=== PATIENT | female | born 1965 | race Caucasian/White ===

== ENCOUNTER 2016-11-23 17:18 | Emergency (ER) | payer OTHER ==
--- NOTE | ~2016-11-23 | CT52 ---
[facility] A Service of [facility] RADIOLOGY TEXT RESULTS PATIENT: KHARI GUZMAN LOCATION: SED : 65 UNIT #: [id number] AGE: [address]: Breann Houser SEX: F ORDER DR: [id number] [address] [address] [id number] E MR#: [id number] #: [id number] NAME: KHARI GUZMAN : 1965 SEX: F STUDY DATE/TIME: 11/23/2016 17:44 UNIT: SED ROOM: STUDY DESCRIPTION: CT Cervical Spine Wo Cont Attending Physician: Breann Houser Pa-C Ordering Physician: Staff Doctor Not On MEDICAL IMAGING REPORT This report is preliminary unless electronic signature is present. EXAM CT C-spine without contrast dated 11/23/2016 COMPARISON None. HISTORY Left-sided neck pain which radiates into the left shoulder since 11/19/2016. Hand and fingers demonstrate tingling. TECHNIQUE This CT exam was performed with one or more of the following radiation dose reduction techniques: automatic control, adjustment of mA and/or kV according to patient size, and iterative reconstruction. FINDINGS CT of the C-spine was obtained without contrast in the axial plane followed by sagittal and coronal reformats. No acute fracture or subluxation is seen. Degenerative endplate changes are noted with loss of disc height at C4-5 and C5-6. Pre and paravertebral soft tissues do not demonstrate any significant abnormality. Emphysematous blebs are noted in the right lung. C2-3 to C4-5: No significant canal stenosis or neural foraminal narrowing. Small left uncinate spur is seen in the C4-5 level without any severe nerve impingement. C5-6: Disc osteophyte complex with bilateral uncinate spurs, moderate to severe left and mild to moderate right neural foraminal narrowing with borderline-sized canal. C6-7, C7-T1: Unremarkable. [facility] A Service [facility] RADIOLOGY TEXT RESULTS PATIENT: KHARI GUZMAN LOCATION: SED : 65 UNIT #: [id number] AGE: [address]: Breann Houser SEX: F ORDER DR: IMPRESSION 1. Degenerative changes are noted at particularly C5-6 and to a lesser degree at C4-5. Bilateral C5-6 neural foraminal narrowing is seen, worse on the left with mild canal stenosis. 2. No acute fracture. Dictated by... Janessa Andrade M.D. THIS IS AN ELECTRONICALLY VERIFIED REPORT Janessa Andrade M.D. at 11/26/2016 1:43 PM CPR/rnr TD: 11/24/2016 00:39 JOB #: [id number] MEDICAL IMAGING REPORT Page 1 of 1
[~2016-11-23 17:18] MED LIST: COLACE PO; HYDROCODON-ACE1 EA11 PO; IBUPROFEN800 MG PO; PHENTERMINE PO
== END 2016-11-23 18:50 | disposition home or self-care (01) ==
LOC: SED 17:18
DX: M48.02 Spinal stenosis, cervical region (principal); F17.210 Nicotine dependence, cigarettes, uncomplicated; Z90.49 Acquired absence of other specified parts of digestive tract
CPT/HCPCS: 72125; 96372; 99284; J1040; J1885